=== PATIENT | male | born 1950 | race Caucasian/White ===

== ENCOUNTER 2021-03-22 10:39 | Outpatient (CLI) | payer MEDICARE | END 2021-03-22 10:40 | disposition home or self-care (01) | LOC: PET 10:39 | PROVIDERS: ATTEND Internal Medicine Hematology & Oncology | DX: C83.11 Mantle cell lymphoma, lymph nodes of head, face, and neck (principal); C85.80 Other specified types of non-Hodgkin lymphoma, unspecified site | CPT/HCPCS: 78815; A9552 ==

== ENCOUNTER 2021-03-25 12:37 | Outpatient (CLI) | payer MEDICARE | END 2021-03-25 12:38 | disposition home or self-care (01) | LOC: ULT 12:37 | PROVIDERS: ATTEND Internal Medicine Hematology & Oncology | DX: Z51.11 Encounter for antineoplastic chemotherapy (principal); C83.11 Mantle cell lymphoma, lymph nodes of head, face, and neck; Z79.899 Other long term (current) drug therapy; I07.1 Rheumatic tricuspid insufficiency | CPT/HCPCS: 93306 ==

== ENCOUNTER 2021-03-27 08:32 | Day surgery (SDC) | payer MEDICARE ==
[2021-03-25 08:38] VITALS: BMI 29.3
[2021-03-27 09:14] LABS: #Basophils 0.1 thou/uL (0.0-0.2); #Eosinphils 0.1 thou/uL (0.0-0.7); #Lymphocytes 0.9 thou/uL (1.20-3.40); #Monocytes 0.7 thou/uL (0.11-0.59); #Neutrophils 4.2 thou/uL (1.40-6.50); %Basophils 1.1 % (0.0-1.0); %Eosinophils 2.3 % (0.0-10.0); %Lymphocytes 14.7 % (21.0-51.0); %Monocytes 11.3 % (0.0-10.0); %Neutrophils 70.6 % (42.0-75.0); Hemoglobin 14.5 g/dL (14.0-18.0); Mean Corpuscular Hemoglobin 28.7 pg (27.0-31.0); Mean Corpuscular Volume 92.3 fL (78.0-98.0); Mean Platelet Volume 6.9 fL (7.4-10.4); Platelet Count 242 thou/uL (130-400); RBC Distribution Width 12.8 % (11.5-14.5); Red Blood Cell (RBC) Count 5.06 mill/uL (4.70-6.10); White Blood Cell (WBC) Count 5.9 thou/uL (4.8-10.8)
[2021-03-27 09:31] LABS: INR-International Normal Ratio 0.9; PTT 27.7 sec (22.9-36.1); Prothrombin Time 12.7 sec (12.0-14.7)
[2021-03-27 11:34] VITALS: BP 157/96; TEMP 98.2
== END 2021-03-27 11:55 | disposition home or self-care (01) ==
LOC: CT 08:32
PROVIDERS: ATTEND Internal Medicine Hematology & Oncology
PROC: 07DR3ZX Extraction of Iliac Bone Marrow, Percutaneous Approach, Diagnostic (ICD-10-PCS; principal; 2021-03-27)
DX: C83.19 Mantle cell lymphoma, extranodal and solid organ sites (principal); H40.059 Ocular hypertension, unspecified eye
CPT/HCPCS: 20225; 77012; 85025; 85097; 85610; 85730; 88184; 88237; 88264; 88280; 88305; 88307; 88311; 88313; 88341; 88342; 88365

== ENCOUNTER 2022-01-31 09:15 | Outpatient (CLI) | payer MEDICARE | END 2022-01-31 09:16 | disposition home or self-care (01) | LOC: PET 09:15 | PROVIDERS: ATTEND Internal Medicine Hematology & Oncology | DX: C83.11 Mantle cell lymphoma, lymph nodes of head, face, and neck (principal) | CPT/HCPCS: 78815; A9552 ==

== ENCOUNTER 2022-08-28 12:55 | Day surgery (SDC) | payer MEDICARE ==
[2022-08-28] MEDS ORDERED: Tixagevimab 1.5 ML/Cilgavimab 1.5 ML (EUA) IM SCH (13:30)
[2022-08-28 15:34] VITALS: BP 129/62; TEMP 98.1
== END 2022-08-28 16:08 | disposition home or self-care (01) ==
LOC: ONC/OP 12:55
PROVIDERS: ATTEND Internal Medicine Hematology & Oncology
DX: Z29.8 Encounter for other specified prophylactic measures (principal); Z94.84 Stem cells transplant status
CPT/HCPCS: M0220; Q0220

== ENCOUNTER 2023-05-06 09:49 | Outpatient (CLI) | payer MEDICARE ==
[2023-05-06] MEDS ORDERED: Iopamidol 370 76% 100 ML VIAL ONE (12:27)
== END 2023-05-06 09:50 | disposition home or self-care (01) ==
LOC: BICCT 09:49
PROVIDERS: ATTEND Internal Medicine Hematology & Oncology
DX: C83.11 Mantle cell lymphoma, lymph nodes of head, face, and neck (principal)
CPT/HCPCS: 71260; 74177; 82565; Q9967

== ENCOUNTER 2024-07-15 08:24 | Outpatient (CLI) | payer MEDICARE | END 2024-07-15 08:25 | disposition home or self-care (01) | LOC: BICMAMMO 08:24 | PROVIDERS: ATTEND Internal Medicine Hematology & Oncology | DX: M85.851 Other specified disorders of bone density and structure, right thigh (principal); M85.852 Other specified disorders of bone density and structure, left thigh | CPT/HCPCS: 77080 ==